=== PATIENT | female | born 1985 | race Caucasian/White ===

== ENCOUNTER 2019-07-04 09:06 | Emergency (ER) | payer SELFPAY ==
[2019-07-04 09:23] LABS: URINE APPEARANCE CLOUDY; URINE BILIRUBIN NEGATIVE (NEGATIVE); URINE BLOOD LARGE (NEGATIVE); URINE COLOR YELLOW; URINE GLUCOSE (UA) NEGATIVE (NEGATIVE); URINE KETONE NEGATIVE (NEGATIVE); URINE LEUKOCYTE ESTERASE SMALL (NEGATIVE); URINE NITRITE NEGATIVE (NEGATIVE); URINE UROBILINOGEN 0.2 E.U./dL (0.20 - 1.00)
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
[2019-07-04 09:36] LABS: URINE BACTERIA FEW; URINE WBC 21 - 35 (0-2/hpf)
[2019-07-05 22:12] LABS: GC SPECIMEN TYPE Cervix
== END 2019-07-04 10:41 | disposition home or self-care (01) ==
LOC: ER 09:06
DX: N76.0 Acute vaginitis (principal); N30.00 Acute cystitis without hematuria; F17.210 Nicotine dependence, cigarettes, uncomplicated
CPT/HCPCS: 81001; 81025; 87210; 99284